=== PATIENT | male | born 1960 | race Caucasian/White ===

== ENCOUNTER 2016-10-30 11:20 | Emergency (ER) | payer OTHER ==
[2016-10-30] MEDS ORDERED: SODIUM CHLORIDE 500 ML IV STA (11:40)
[2016-10-30] MEDS ORDERED: LORAZEPAM CARPU-JECT 2 MG/ML DISP.SYRIN IVPUSH ONE (11:40)
[2016-10-30 11:46] VITALS: TEMP 98; BMI 27.3
--- NOTE | 2016-10-30 11:48 | PDOC ---
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 He was out with his and had several drinks of alcohol yesterday night. He woke up this morning feeling somewhat lightheaded. He proceeded to go about his day and decided to do some yard work in his backyard all morning. He states that while doing yard work outside, he became lightheaded and sweaty. He began to feel anxious and decided to present to the emergency department. He states that he felt a brief episode of feeling some tingling in his bilateral hands. He notes that when he sits/stands up, his lightheadedness is exacerbated and reports that this makes him more anxious. He denies fever, chills, cough, hemoptysis, shortness of breath, headache. He denies jaw/ back pain, chest pain, dizziness, palpitations, lower extremity pain/swelling, calf tenderness/pain He denies abdominal pain,nausea, vomiting, diarrhea, hematochezia, melena Allergies: No Known Drug Allergies Past Surgical History: None reported. Social History: Never smoked. No EtOH and recreational drug use. Primary Care Physician: N/A <Gilda Miner - Last Filed: 10/30/16 13:59> - General History Source: Patient, Spouse Exam Limitations: No Limitations <Davey Posadas - Last Filed: 10/30/16 17:06> - General Chief Complaint: Lightheaded Stated Complaint: SHORTNESS OF BREATH Time Seen by Provider: 10/30/16 11:26 Past History <Gilda Miner - Last Filed: 10/30/16 13:59> - Psycho/Social/Smoking Cessation Hx Anxiety: No Suicidal Ideation: No Smoking History: Never smoked Have you smoked in the past 12 months: No Hx Alcohol Use: No Substance Use Type: None Hx Substance Use Treatment: No <Davey Posadas - Last Filed: 10/30/16 17:06> - Past Medical History Allergies/Adverse Reactions: Allergies Allergy/AdvReac Type Severity Reaction Status Date / Time No Known Allergies Allergy Unverified 10/30/16 11:42 Home Medications: Ambulatory Orders Fluoxetine HCl [Prozac -] 40 mg PO DAILY 10/30/16 Metoprolol Tartrate 25 mg PO DAILY 10/30/16 Rosuvastatin Calcium 80 mg PO DAILY 10/30/16 Review of Systems - Review of Systems Able to Perform ROS?: Yes Comments:: 10/30/16 11:26 GENERAL/CONSTITUTIONAL: Yes: Diaphoresis. No fever or chills. No weakness. HEAD, EYES, EARS, NOSE AND THROAT: No change in vision. No ear pain or discharge. No sore throat. CARDIOVASCULAR: No chest pain or shortness of breath. RESPIRATORY: No cough, wheezing, or hemoptysis. GASTROINTESTINAL: No nausea, vomiting, diarrhea or constipation. GENITOURINARY: No dysuria, frequency, or change in urination. MUSCULOSKELETAL: No joint or muscle swelling or pain. No neck or back pain. SKIN: No rash NEUROLOGIC: Yes: Lightheadedness. No headache, vertigo, loss of consciousness, or change in strength/sensation. ENDOCRINE: No increased thirst. No abnormal weight change. HEMATOLOGIC/LYMPHATIC: No anemia, easy bleeding, or history of blood clots. ALLERGIC/IMMUNOLOGIC: No hives or skin allergy. <Gilda Miner - Last Filed: 10/30/16 13:59> *Physical Exam - Vital Signs Last Vital Signs Temp Pulse Resp BP Pulse Ox 98.0 F 82 22 128/96 100 10/30/16 11:35 10/30/16 11:35 10/30/16 11:35 10/30/16 11:46 10/30/16 11:35 - Physical Exam Comments: 10/30/16 11:26 GENERAL: Awake, alert, and fully oriented, in no acute distress HEAD: No signs of trauma EYES: PERRLA, EOMI, sclera anicteric, conjunctiva clear ENT: Auricles normal inspection, hearing grossly normal, nares patent, oropharynx clear without exudates. Moist mucosa NECK: Normal ROM, supple, no lymphadenopathy, JVD, or masses LUNGS: Breath sounds equal, clear to auscultation bilaterally. No wheezes, and no crackles HEART: Regular rate and rhythm, normal S1 and S2, no murmurs, rubs or gallops ABDOMEN: Soft, nontender, normoactive bowel sounds. No guarding, no rebound. No masses EXTREMITIES: Normal range of motion, no edema. No clubbing or cyanosis. No cords, erythema, or tenderness NEUROLOGICAL: Cranial nerves II through XII grossly intact. <Gilda Miner - Last Filed: 10/30/16 13:59> Heart Score/ECG Review - History History: Slightly suspicious - Electrocardiogram EKG: Normal - Age Age: 45-65 - Risk Factors Based on the list above the patient has:: 1-2 risk factors - Troponin Troponin: </= normal limit - Score Heart Score - Total: 2 #1 ECG reviewed & interpreted by me at: 11:25 10/30/16 13:12 NSR 85, no std/wade, normal axis, normal intervals, QTC 492 msec. <Davey Posadas - Last Filed: 10/30/16 17:06> ED Treatment Course - LABORATORY CBC & Chemistry Diagram: 10/30/16 11:46 10/30/16 11:46 - RADIOLOGY Radiograph Interpretation: 10/30/16 12:20 EXAM: RAD/CHEST X-RAY PORTABLE Interpreted by Dr. Francis Graham IMPRESSION: A single AP view of the chest reveals clear lungs, normal mediastinum and sharp angles. The bones and soft tissues are intact. <Gilda Miner - Last Filed: 10/30/16 13:59> - LABORATORY CBC & Chemistry Diagram: 10/30/16 11:46 10/30/16 11:46 - RADIOLOGY Radiology Studies Ordered: Category Date Time Status CHEST X-RAY PORTABLE* [RAD] Stat Radiology 10/30/16 11:40 Ordered <Davey Posadas - Last Filed: 10/30/16 17:06> Medical Decision Making - Medical Decision Making 10/30/16 13:12 A portion of this note was documented by scribe services under my direction. I have reviewed the details of the note, within reason, and agree with the documentation with the following case summary and management plan written by me. Patient treated in the ED. Nursing notes are reviewed and incorporated into the medical decision-making. Vital signs reviewed. Peripheral IV access obtained by the nurse, laboratory studies are drawn and sent, reviewed and interpreted by myself. Vital Signs Temp Pulse Resp BP Pulse Ox 98.0 F 82 22 128/96 98 10/30/16 11:35 10/30/16 11:35 10/30/16 11:35 10/30/16 11:46 10/30/16 11:54 55-year-old male with history of cardiac myopathy with ejection fraction of 45% presents with his , who is a nurse here at [employer], for lightheadedness. The patient reports that he was out with his and had several drinks of alcohol yesterday night. Woke up this morning with somewhat lightheaded. Patient was out in his yard doing yard work on morning and when he is outside, he became lightheaded and diaphoretic. Denies chest pain or shortness of breath. The patient had become anxious and the patient came to the ED. Patient again denies chest pain. Squama tingling in his bilateral hands. States that when he sits up or stands up because more lightheaded and this makes him anxious. Patient's states that several years ago when he was having personal troubles, he also went to the ER for anxiety. I agree that this is likely anxiety. However, patient has elements of dehydration. Given his history of cardiac myopathy, we'll obtain labs, chest x- ray and 2 separate troponins. If workup is negative, we'll discharge patient home. Patient was given Ativan which reports his symptoms resolved. 10/30/16 17:04 Chest xray reviewed. No acute findings. CBC, BMP 10/30/16 11:46 10/30/16 11:46 Two troponin negative. The patient reported that the ativan improved his symptoms dramatically. Pt will go home to his . I discussed the physical exam findings, ancillary test results and final diagnoses with the patient. I answered all of the patient's questions. The patient was satisfied with the care received and felt comfortable with the discharge plan and treatment plan. The patient will call their primary care physician within 24 hours to arrange follow-up and will return to the Emergency Department with any new, persistant or worsening symptoms. <Davey Posadas - Last Filed: 10/30/16 17:06> *DC/Admit/Observation/Transfer - Attestations Scribe Attestion: 10/30/16 11:26 Documentation prepared by Gilda Miner, acting as medical secretary receptionist for Davey Posadas MD. <Gilda Miner - Last Filed: 10/30/16 13:59> - Discharge Dispostion Admit: No <Davey Posadas - Last Filed: 10/30/16 17:06> Diagnosis at time of Disposition: Dehydration, Anxiety - Discharge Dispostion Disposition: HOME Condition at time of disposition: Improved - Patient Instructions Printed Discharge Instructions: DI for Dehydration -- Adult Additional Instructions: You have a normal chest xray and two negative troponins. Please follow up with your doctor. Drink plenty of fluids and rest.
[2016-10-30] MEDS ORDERED: LORazepam 2 MG/ML SDV VIAL ONE (11:50)
[2016-10-30 11:54] LABS: BASOPHIL 0.7 % (0-2.0); EOSINOPHIL 0.7 % (0-4.5); MCH 32.7 pg (25.7-33.7); MCHC 34.1 g/dl (32.0-35.9); MEAN CELL VOLUME 95.9 fl (80-96); MEAN PLT VOLUME 8.1 fl (7.5-11.1); NEUTROPHILS 57.9 % (42.8-82.8); PLATELET COUNT 244 K/MM3 (134-434); RDW 12.4 % (11.9-15.9); WHITE BLOOD COUNT 6.5 K/mm3 (4.0-10.0)
[2016-10-30 12:17] LABS: ALBUMIN 4.7 g/dl (3.4-5.0); ALK PHOS 86 U/L (45-117); ANION GAP 17 (8-16); BILIRUBIN,TOTAL 0.8 mg/dL (0.2-1.0); CALCIUM 9.3 mg/dL (8.5-10.1); CO2 21 mmol/L (21-32); COCKROFT - GAULT 87.19; CREATININE 1.1 mg/dL (0.7-1.3); GLUCOSE,RANDOM 107 mg/dL (74-106); MAGNESIUM 2.4 mg/dL (1.8-2.4); SGOT/AST 28 U/L (15-37); SGPT/ALT 35 U/L (12-78); TOT PROT 7.8 g/dl (6.4-8.2)
[2016-10-30 12:19] LABS: TROPONIN I < 0.02 ng/ml (0.00-0.05)
[2016-10-30 14:33] LABS: URINE APPEARANCE CLEAR; URINE BILIRUBIN NEGATIVE (NEGATIVE); URINE BLOOD NEGATIVE (NEGATIVE); URINE COLOR YELLOW; URINE GLUCOSE (UA) NEGATIVE (NEGATIVE); URINE KETONE 3+ (NEGATIVE); URINE LEUK ESTERASE NEGATIVE (NEGATIVE); URINE NITRITE NEGATIVE (NEGATIVE); URINE PROTEIN NEGATIVE (NEGATIVE); URINE UROBILINOGEN 0.2 E.U/dl E.U./dl (0.2-1.0)
--- NOTE | 2016-10-30 15:23 | EKG ---
Test Reason : Blood Pressure : / mmHG Vent. Rate : 085 BPM Atrial Rate : 085 BPM P-R Int : 152 ms QRS Dur : 096 ms QT Int : 414 ms P-R-T Axes : 047 052 056 degrees QTc Int : 492 ms NORMAL SINUS RHYTHM PROLONGED QT ABNORMAL ECG WHEN COMPARED WITH ECG OF 15-NOV-2014 12:15, QT HAS LENGTHENED CLINICAL CORRELATION IS RECOMMENDED Confirmed by EVELINE ARMAS, STANLEY ([id number]) on 10/30/2016 3:23:13 PM Referred By: Confirmed By:STANLEY MOSQUERA MD
[2016-10-30 16:26] VITALS: BP 117/83; PULSE 76
[2016-10-30 16:33] LABS: TROPONIN I < 0.02 ng/ml (0.00-0.05)
== END 2016-10-30 17:12 | disposition home or self-care (01) ==
LOC: JER 11:20
PROC: 3E033GC Introduction of Other Therapeutic Substance into Peripheral Vein, Percutaneous Approach (ICD-10-PCS; principal; 2016-10-30)
PROC: 3E0337Z Introduction of Electrolytic and Water Balance Substance into Peripheral Vein, Percutaneous Approach (ICD-10-PCS; 2016-10-30)
DX: E86.0 Dehydration (principal); F41.9 Anxiety disorder, unspecified
CPT/HCPCS: 36415; 71010-TC; 80053; 81003; 82550; 82553; 83735; 84484; 85025; 93005; 93010; 99284-25